=== PATIENT | female | born 1955 | race Caucasian/White ===

== ENCOUNTER → 2017-02-27 | Outpatient (CLI) | payer BC ==
--- NOTE | 2017-02-27 17:41 | MY ---
EXAMINATION: Bilateral digital mammography utilizing CAD. HISTORY: Screening exam. Comparison is made to previous studies dated 04/03/2014, 04/16/2013. FINDINGS: Bilateral scattered fibroglandular densities. No suspicious calcifications, masses or ar chitectural distortions. No pathologic appearing lymph nodes, no abnormal skin thickening or nippl e inversion. CAD highlighted regions appear normal at this time. IMPRESSION: BI-RADS category I - negative mammogram. Continued screening according to ACR-ACS gu idelines suggested. THE FALSE-NEGATIVE RATE OF MAMMOGRAM IS APPROXIMATELY 10%. MANAGEMENT OF A PALPABLE ABNORMALITY MUST BE BASED UPON CLINICAL GROUNDS. SENSITIVITY FOR DETECTION OF ABNORMALITIES IN DENSE BREASTS IS LOW. NOTE: A letter will be sent to the patient regarding findings. [facility] -- JARVIS Galdamez [phone] - FAX [phone]
[2017-03-03 16:02] LABS: HPV 16 Not Detected (NOTDET); HPV 18 Not Detected (NOTDET)
== END ==
LOC: MW.MAM 11:36
PROVIDERS: ATTEND Obstetrics & Gynecology
DX: Z12.31 Encounter for screening mammogram for malignant neoplasm of breast (principal); Z12.4 Encounter for screening for malignant neoplasm of cervix
CPT/HCPCS: 36415; 80061; 87624; G0202; G0145

== ENCOUNTER 2022-06-08 08:29 | Day surgery (SDC) | payer MEDICARE, OTHER ==
[2022-06-06 17:25] LABS: CARBON DIOXIDE,CO2 28.6 mmol/L (21.0-32.0); POTASSIUM,K 3.7 mmol/L (3.5-5.1)
[~2022-06-08 08:29] MED LIST: Dexmedetomidine 200 MCG/2 ML SDV ONE; Fluorescein 5 ML Vial ONE; Glycopyrrolate 0.2 MG/ML SDV ONE; Lidocaine 2% 5 ML SDV ONE; Ondansetron 4 MG/2 ML SDV ONE; Phenylephrine HCl In 0.9% NaCl 1 MG/10 ML Vial ONE; Propofol 200 MG/20 ML SDV ONE; Rocuronium Bromide 50 MG/5 ML Syringe ONE; Sodium Chloride 0.9% 10 ML Syringe FLUSH PRN; Sodium Chloride 0.9% 2.5 ML Syringe FLUSH PRN; Sodium Chloride 0.9% 20 ML SDV IV PRN; ceFAZolin 2 GM in Premix Bag 1 BAG IV ONE; fentaNYL 100 MCG/2 ML SDV ONE
[2022-06-08] MEDS: Lactated Ringers 1,000 ML IV SCH ×3 (08:49→21:23)
[2022-06-08] MEDS ORDERED: fentaNYL 50 MCG/ML SDV IVPUSH PRN (09:03)
[2022-06-08] MEDS ORDERED: Ondansetron 4 MG/2 ML SDV IVPUSH PRN ×2 (09:03→10:37)
[2022-06-08] MEDS ORDERED: Albuterol 0.083% 2.5 MG/3 ML Neb Soln NEB PRN (09:03)
[2022-06-08] MEDS ORDERED: Naloxone 0.4 MG/ML SDV IVPUSH PRN (09:03)
[2022-06-08] MEDS ORDERED: Metoclopramide 10 MG/2 ML SDV IVPUSH PRN (09:03)
[2022-06-08] MEDS ORDERED: ceFAZolin 1 GM Vial ONE (09:19)
[2022-06-08] MEDS ORDERED: Dexmedetomidine 200 MCG/2 ML SDV ONE (09:28)
[2022-06-08] MEDS ORDERED: Dexamethasone 4 MG/ML 5 ML MDV ONE (09:28)
[2022-06-08] MEDS ORDERED: Ondansetron 4 MG/2 ML SDV ONE (10:09)
[2022-06-08] MEDS ORDERED: Propofol 200 MG/20 ML SDV ONE (10:24)
[2022-06-08] MEDS ORDERED: Sugammadex Sodium 200 MG/2 ML VIAL ONE (10:30)
[2022-06-08] MEDS ORDERED: Ketorolac 30 MG/ML SDV ONE (10:32)
[2022-06-08] MEDS ORDERED: Promethazine 25 MG/ML SDV IM PRN (10:37)
[2022-06-08] MEDS ORDERED: Acetaminophen/oxyCODONE 325-5 MG Tab PO PRN ×2 (10:37)
[2022-06-08] MEDS ORDERED: Ketorolac 30 MG/ML SDV IVPUSH ONE (10:37)
[2022-06-08] MEDS ORDERED: Morphine 4 MG/ML VIAL IVPUSH PRN (10:37)
[2022-06-08] MEDS ORDERED: fentaNYL 100 MCG/2 ML SDV ONE (10:39)
[2022-06-08] MEDS: HYDROmorphone 1 MG/ML Syringe IVPUSH PRN ×2 (11:06→11:21)
[2022-06-08] MEDS ORDERED: Ketorolac 30 MG/ML SDV IVPUSH PRN (16:45)
[2022-06-09 07:07] LABS: CARBON DIOXIDE,CO2 28.6 mmol/L (21.0-32.0); POTASSIUM,K 3.8 mmol/L (3.5-5.1)
[2022-06-09 08:26] VITALS: BP 124/68; PULSE 56
== END 2022-06-09 10:49 | disposition home or self-care (01) ==
LOC: MW.SDS 08:29 → MW.MS 11:56 → MW.SDS 06-09 09:43 → MW.MS 06-09 09:43 → MW.SDS 06-09 10:49
PROVIDERS: ATTEND Obstetrics & Gynecology
DX: N80.0 Endometriosis of uterus (principal); D50.0 Iron deficiency anemia secondary to blood loss (chronic); Z86.16 Personal history of COVID-19; Z79.899 Other long term (current) drug therapy; Z98.891 History of uterine scar from previous surgery
CPT/HCPCS: 36415; 58571; 80048; 84703; 85025; 85027; 86850; 86900; 86901; J0131; J0690; J1100; J1170; J2704; J3010; J3490; J7030; J7120; 00840; 88307; J1885; J2405

== ENCOUNTER 2022-11-11 00:04 | Emergency (ER) | payer MEDICARE, OTHER ==
[2022-11-11 01:12] LABS: CARBON DIOXIDE,CO2 26.5 mmol/L (21.0-32.0); POTASSIUM,K 3.7 mmol/L (3.5-5.1)
[2022-11-11 01:53] VITALS: BP 118/73; PULSE 83
== END 2022-11-11 01:48 | disposition home or self-care (01) ==
LOC: MW.ED 00:04
DX: R10.13 Epigastric pain (principal); R42 Dizziness and giddiness; Z88.5 Allergy status to narcotic agent
CPT/HCPCS: 36415; 80053; 83690; 84484; 85025; 93005; 99284

== ENCOUNTER 2023-02-07 15:30 | Emergency (ER) | payer MEDICARE, OTHER, BC ==
[2023-02-07] MEDS ORDERED: Sodium Chloride 0.9% 10 ML Syringe FLUSH PRN (16:32)
[2023-02-07] MEDS ORDERED: Sodium Chloride 0.9% 2.5 ML Syringe FLUSH PRN (16:32)
[2023-02-07] MEDS ORDERED: Sodium Chloride 0.9% 1,000 ML IV STA (16:48)
[2023-02-07 17:02] LABS: CARBON DIOXIDE,CO2 25.5 mmol/L (21.0-32.0); POTASSIUM,K 4.5 mmol/L (3.5-5.1)
[2023-02-07] MEDS ORDERED: Pantoprazole 80 MG in Sodium Chloride 0.9% 10 ML IVPUSH STA (17:13)
[2023-02-07] MEDS ORDERED: Iopamidol 755 MG/ML 500 ML Multipack Bottle IVPUSH ONE (17:28)
[2023-02-07 20:44] LABS: CORONAVIRUS COVID-19 NAA NEGATIVE (NEGATIVE); INFLUENZA A NAA NEGATIVE (NEGATIVE); INFLUENZA B NAA NEGATIVE (NEGATIVE)
[2023-02-08] MEDS ORDERED: Acetaminophen 325 MG Tab PO ONE (00:30)
[2023-02-08 04:50] VITALS: PULSE 72
[2023-02-08 05:28] VITALS: BP 110/57
== END 2023-02-08 08:28 ==
LOC: MW.ED 15:30
DX: D64.9 Anemia, unspecified (principal); K92.1 Melena; Z88.5 Allergy status to narcotic agent; Z98.84 Bariatric surgery status; Z20.822 Contact with and (suspected) exposure to COVID-19
CPT/HCPCS: 0240U; 36415; 36430; 70450; 71045; 74177; 80053; 81003; 82607; 82728; 83690; 83735; 84484; 85025; 85610; 86850; 86900; 86901; 86920; 93005; 96361; 96374; 99284; A9270; C9113; J3490; J7030; P9016; Q9967; 93010

== ENCOUNTER 2023-08-14 09:25 | Day surgery (SDC) | payer MEDICARE, OTHER, BC ==
[2023-08-14] MEDS ORDERED: Lidocaine 1% 20 ML MDV ONE (09:41)
[2023-08-14] MEDS ORDERED: Bupivacaine 0.5% 30 ML SDV ONE (09:41)
[2023-08-14 10:26] VITALS: BP 131/72; PULSE 67
== END 2023-08-14 10:35 | disposition home or self-care (01) ==
LOC: MW.SDS 09:25
PROVIDERS: ATTEND Surgery
DX: L72.11 Pilar cyst (principal); D23.4 Other benign neoplasm of skin of scalp and neck; K21.9 Gastro-esophageal reflux disease without esophagitis; Z79.899 Other long term (current) drug therapy
CPT/HCPCS: 11422; J3490

== ENCOUNTER 2023-11-16 19:33 | Observation (INO) | payer MEDICARE, OTHER, BC ==
[2023-11-16] MEDS ORDERED: Sodium Chloride 0.9% 500 ML IV ONE (19:38)
[2023-11-16] MEDS ORDERED: Sodium Chloride 0.9% 2.5 ML Syringe FLUSH PRN (19:38)
[2023-11-16] MEDS ORDERED: Sodium Chloride 0.9% 10 ML Syringe FLUSH PRN (19:38)
[2023-11-16] MEDS ORDERED: Ondansetron 4 MG/2 ML SDV IVPUSH ONE (19:39)
[2023-11-16 19:50] LABS: BASOPHILS ABSOLUTE AUTO 0.02 K/uL (0.00-0.20); BASOPHILS PERCENT AUTO 0.3 % (0.0-1.0); EOSINOPHILS ABSOLUTE AUTO 0.13 K/uL (0.00-0.45); EOSINOPHILS PERCENT AUTO 2.1 % (0.0-6.0); HEMATOCRIT 36.7 % (37.0-47.0); HEMOGLOBIN 12.3 g/dL (12.0-16.0); LYMPHOCYTES ABSOLUTE AUTO 1.82 K/uL (1.00-4.80); LYMPHOCYTES PERCENT AUTO 29.5 % (24.0-44.0); MEAN CORPUSCULAR HEMOGLOBIN 33.2 pg (28.0-32.0); MEAN CORPUSCULAR HGB CONC 33.5 g/dL (32.0-36.0); MEAN CORPUSCULAR VOLUME 99.2 fL (83.0-99.0); MEAN PLATELET VOLUME 9.7 fL (9.4-12.3); MONOCYTES ABSOLUTE AUTO 0.41 K/uL (0.00-0.80); MONOCYTES PERCENT AUTO 6.7 % (0.0-8.0); NEUTROPHILS ABSOLUTE AUTO 3.78 K/uL (1.80-7.70); NEUTROPHILS PERCENT AUTO 61.4 % (41.0-71.0); PLATELET COUNT,PLT 352 K/uL (150-400); WHITE BLOOD CELL COUNT,WBC 6.16 K/uL (3.9-11.3)
[2023-11-16 20:10] LABS: D-DIMER QUANTITATIVE 2.74 mg/L FEU (0.00-0.50); INR 1.03 (0.86-1.11)
[2023-11-16 20:17] LABS: A/G RATIO 1.2 (0.9-1.6); ALBUMIN 4.1 g/dL (3.4-5.0); BILIRUBIN TOTAL 0.3 mg/dL (0.2-1.0); CALCIUM 9.4 mg/dL (8.5-10.1); CARBON DIOXIDE,CO2 25.9 mmol/L (21.0-32.0); EST CRCL DRUG DOSING (CG) 51.1 mL/min; POTASSIUM,K 3.6 mmol/L (3.5-5.1); PROTEIN TOTAL,TP 7.4 g/dL (6.4-8.2)
[2023-11-16] MEDS ORDERED: Iopamidol 755 MG/ML 500 ML Multipack Bottle IVPUSH ONE (20:39)
[2023-11-17] MEDS ORDERED: Acetaminophen 325 MG Tab PO PRN (07:36)
[2023-11-17] MEDS ORDERED: Ondansetron 4 MG/2 ML SDV IVPUSH PRN (07:36)
[2023-11-17] MEDS ORDERED: Pantoprazole 40 MG in Sodium Chloride 0.9% 10 ML IVPUSH SCH (07:45)
[2023-11-17 08:10] LABS: BASOPHILS ABSOLUTE AUTO 0.02 K/uL (0.00-0.20); BASOPHILS PERCENT AUTO 0.3 % (0.0-1.0); EOSINOPHILS ABSOLUTE AUTO 0.13 K/uL (0.00-0.45); EOSINOPHILS PERCENT AUTO 2.1 % (0.0-6.0); HEMATOCRIT 32.7 % (37.0-47.0); HEMOGLOBIN 11.1 g/dL (12.0-16.0); IMMATURE GRAN ABSOLUTE AUTO 0.01 K/uL (0.00-0.05); IMMATURE GRAN PERCENT AUTO 0.2 % (0.0-0.4); LYMPHOCYTES ABSOLUTE AUTO 1.45 K/uL (1.00-4.80); LYMPHOCYTES PERCENT AUTO 23.8 % (24.0-44.0); MEAN CORPUSCULAR HEMOGLOBIN 33.2 pg (28.0-32.0); MEAN CORPUSCULAR HGB CONC 33.9 g/dL (32.0-36.0); MEAN CORPUSCULAR VOLUME 97.9 fL (83.0-99.0); MEAN PLATELET VOLUME 9.5 fL (9.4-12.3); MONOCYTES ABSOLUTE AUTO 0.47 K/uL (0.00-0.80); MONOCYTES PERCENT AUTO 7.7 % (0.0-8.0); NEUTROPHILS PERCENT AUTO 65.9 % (41.0-71.0); PLATELET COUNT,PLT 301 K/uL (150-400); RED BLOOD CELL COUNT 3.34 M/uL (4.10-5.30); WHITE BLOOD CELL COUNT,WBC 6.08 K/uL (3.9-11.3)
[2023-11-17 08:18] LABS: A/G RATIO 1.2 (0.9-1.6); ALBUMIN 3.4 g/dL (3.4-5.0); BILIRUBIN TOTAL 0.3 mg/dL (0.2-1.0); CALCIUM 9.2 mg/dL (8.5-10.1); CARBON DIOXIDE,CO2 29.8 mmol/L (21.0-32.0); CREATININE 0.8 mg/dL (0.6-1.0); EST CRCL DRUG DOSING (CG) 63.88 mL/min; POTASSIUM,K 4.2 mmol/L (3.5-5.1); PROTEIN TOTAL,TP 6.2 g/dL (6.4-8.2)
[2023-11-17 08:22] LABS: HEMOGLOBIN A1C 5.8 %
[2023-11-17 12:48] VITALS: BP 132/82; PULSE 75
== END 2023-11-17 13:15 | disposition home or self-care (01) ==
LOC: MW.ED 19:33 → MW.MS 23:05
PROVIDERS: ADMIT Internal Medicine; ATTEND Internal Medicine
DX: R42 Dizziness and giddiness (principal); E16.2 Hypoglycemia, unspecified; R06.02 Shortness of breath; R10.9 Unspecified abdominal pain; R11.0 Nausea; R11.10 Vomiting, unspecified; Z79.899 Other long term (current) drug therapy; Z88.5 Allergy status to narcotic agent
CPT/HCPCS: 36415; 71275; 80053; 82947; 83036; 83735; 84484; 85025; 85379; 85610; 86850; 86900; 86901; 93005; 96361; 96374; 99285; C9113; J2405; J3490; J7040; Q9967; 93010; 96375; 99222; 99284; G0378